=== PATIENT | female | born 2005 | race African-American/Black ===

== ENCOUNTER 2024-02-04 19:16 | Emergency (ER) | payer OTHER, SELFPAY ==
[~2024-02-04] VITALS: Ht 154.9 cm; Wt 48.5 kg
[2024-02-04 22:40] LABS: BASO # 0.1 10^3/uL (0.0-0.2); BASO % 0.4 % (0.0-1.0); HEMATOCRIT 43.3 % (36.0-47.0); HEMOGLOBIN 14.3 g/dl (12.0-15.5); LYMPH # 1.8 10^3/uL (1.5-5.0); LYMPH % 14.8 % (24.0-44.0); MEAN CORPUSCULAR HEMOGLOBIN 29.5 pg (27.0-33.0); MEAN CORPUSCULAR VOLUME 89.5 fl (80.0-96.0); MONO # 0.7 10^3/uL (0.0-0.8); MONO % 6.1 % (2.0-8.0); NEUTROPHILS # 9.4 10^3/uL (1.5-8.5); NEUTROPHILS % 78.4 % (36.0-66.0); PLATELET COUNT, AUTOMATED 223 10^3/uL (150-450); RED BLOOD COUNT 4.84 10^6/uL (4.00-5.40); WHITE BLOOD COUNT 11.9 10^3/uL (4.0-10.0)
[2024-02-04 22:59] VITALS: BP 125/78; TEMP 99; O2SAT 100
[2024-02-04] MEDS ORDERED: CEPH500C PO (23:03)
[2024-02-04] MEDS: CEPHALEXIN 500 MG CAP PO ONE (23:13)
== END 2024-02-04 23:16 | disposition home or self-care (01) ==
LOC: M ED 19:16
DX: L03.313 Cellulitis of chest wall (principal); N60.11 Diffuse cystic mastopathy of right breast; E55.9 Vitamin D deficiency, unspecified; F17.200 Nicotine dependence, unspecified, uncomplicated

== ENCOUNTER 2024-05-18 10:48 | Emergency (ER) | payer OTHER, SELFPAY ==
[~2024-05-18] VITALS: Ht 157.5 cm; Wt 46.5 kg
[~2024-05-18 10:48] MED LIST: CEPH500C PO
[2024-05-18 10:53] VITALS: BP 128/78; TEMP 97.7; O2SAT 100
== END 2024-05-18 12:43 | disposition left against medical advice (07) ==
LOC: M ED 10:48
DX: Z53.21 Procedure and treatment not carried out due to patient leaving prior to being seen by health care provider (principal)